=== PATIENT | female | born 1995 | race Caucasian/White ===

== ENCOUNTER 2017-01-25 09:44 | Emergency (ER) | payer OTHER ==
[~2017-01-25] VITALS: Ht 160 cm; Wt 92.5 kg
[~2017-01-25 09:44] MED LIST: METR500T PO
[2017-01-25 09:45] VITALS: Ht 160 cm; Wt 92.5 kg
[2017-01-25 10:15] LABS: URINE BLOOD (Dip) POC Negative (NEGATIVE)
[2017-01-25 10:21] LABS: BASOPHILS % 0.4 % (0.0-2.0); EOSINOPHILS # 0.1 10^3/ul (0.0-0.5); EOSINOPHILS % 0.9 % (0.0-7.0); HEMATOCRIT 38.3 % (37.0-47.0); HEMOGLOBIN 13.4 g/dl (12.0-16.0); LYMPHOCYTES # 2.7 10^3/ul (0.8-2.9); LYMPHOCYTES % 34.1 % (18.0-55.0); MEAN CORPUSCULAR HEMOGLOBIN 30.7 pg (29.0-33.0); MEAN CORPUSCULAR VOLUME 87.8 fl (72.0-104.0); MEAN PLATELET VOLUME 11.6 fl (7.4-10.4); MONOCYTE # 0.5 10^3/ul (0.3-0.9); MONOCYTES % 6.5 % (0.0-13.0); NEUTROPHIL # 4.5 10^3/ul (1.6-7.5); NEUTROPHILS % 57.8 % (30.0-74.0); PLATELET COUNT 243 10^3/UL (140-415); RED BLOOD COUNT 4.36 10^6/ul (4.20-5.40); RED CELL DISTRIBUTION WIDTH 12.1 % (11.5-14.5); WHITE BLOOD COUNT 7.8 10^3/ul (4.8-10.8)
--- NOTE | 2017-01-25 10:38 | ERD ---
ER Documentation Chief Complaint Date/Time DATE: 01/25/17 TIME: 10:33 Chief Complaint vag bleed this morning 6 weeks HPI This is a 21-year-old female presenting to the emergency department with vaginal bleeding while . Patient states last menstrual period 2014. Patient is a A0. Patient states this morning while using the restroom she noticed light spotting. No passage of clots or tissue. No heavy bleeding. ROS All systems reviewed and are negative except as per history of present illness. Medications Home Meds Active Scripts Acetaminophen* (Tylenol*) 325 Mg Tablet, 1 TAB PO Q6 Y for PAIN AND OR ELEVATED TEMP, #20 TAB Prov:WAYNE WEST NP 01/25/17 Nitrofurantoin Monohyd Macrocr* (Macrobid*) 100 Mg Capsr, 100 MG PO BID for 5 Days, CAP Prov:WAYNE WEST NP 01/25/17 Metronidazole* (Flagyl*) 500 Mg Tablet, 500 MG PO TID for 7 Days, TAB Prov:ART NEVAREZ PA-C 01/12/16 Reported Medications [None] No Conflict Check 03/19/12 [None] No Conflict Check 03/17/12 Allergies Allergies: Uncoded Allergies: NONE (Allergy, 03/17/12) PMhx/Soc Medical and Surgical Hx: pt denies Medical Hx, pt denies Surgical Hx History of Surgery: No Anesthesia Reaction: No Hx Neurological Disorder: No Hx Respiratory Disorders: No Hx Cardiac Disorders: No Hx Psychiatric Problems: No Hx Miscellaneous Medical Probl: No Hx Alcohol Use: No Hx Substance Use: No Hx Tobacco Use: No Physical Exam Vitals Vital Signs Date Time Temp Pulse Resp B/P Pulse Ox O2 Delivery O2 Flow Rate FiO2 01/25/17 09:45 97.0 85 18 139/77 96 Physical Exam Const: No acute distress, alert Head: Atraumatic Eyes: Normal Conjunctiva ENT: Normal External Ears, Nose and Mouth. Neck: Full range of motion..~ No meningismus. Resp: Clear to auscultation bilaterally Cardio: Regular rate and rhythm, no murmurs Abd: Soft, non tender, non distended. Normal bowel sounds Skin: No petechiae or rashes Back: No midline or flank tenderness Ext: No cyanosis, or edema Neur: Awake and alert Psych: Normal Mood and Affect Result Diagram: 01/25/17 1005 Results 24 hrs Laboratory Tests Test 01/25/17 10:05 01/25/17 10:21 White Blood Count 7.810^3/ul Red Blood Count 4.3610^6/ul Hemoglobin 13.4g/dl Hematocrit 38.3% Mean Corpuscular Volume 87.8fl Mean Corpuscular Hemoglobin 30.7pg Mean Corpuscular Hemoglobin Concent 35.0g/dl Red Cell Distribution Width 12.1% Platelet Count 55434^3/UL Mean Platelet Volume 11.6fl Neutrophils % 57.8% Lymphocytes % 34.1% Monocytes % 6.5% Eosinophils % 0.9% Basophils % 0.4% Nucleated Red Blood Cells % 0.0/100WBC Neutrophils # 4.510^3/ul Lymphocytes # 2.710^3/ul Monocytes # 0.510^3/ul Eosinophils # 0.110^3/ul Basophils # 0.010^3/ul Nucleated Red Blood Cells # 0.010^3/ul Beta HCG, Quantitative 89966.0mIU/ml Bedside Urine pH (LAB) 7.0 Bedside Urine Protein (LAB) Trace Bedside Urine Glucose (UA) Negative Bedside Urine Ketones (LAB) Negative Bedside Urine Blood Negative Bedside Urine Nitrite (LAB) Negative Bedside Urine Leukocyte Esterase (L Trace Procedures/MDM [place] [address] Radiology Main Line: [phone] DIAGNOSTIC IMAGING REPORT Patient: DEEPALI AHRO : 1995 Age: 21 Sex: F MR #: [id number] DOS: 01/25/17 1003 Ordering MD: WAYNE WEST NP Location: [facility] Room/Bed: PROCEDURE: US Pelvis/OB. CLINICAL INDICATION: vaginal bleeding TECHNIQUE: Multiple sonographic images of the pelvis were obtained utilizing a transabdominal and endovaginal technique. The images were reviewed on a PACS workstation. COMPARISON: None. FINDINGS: There is a small cystic structure within the endometrium measuring 1.4 cm which would correspond to a calculated gestational age of 6 weeks and 0 days. No pole is yet visualized. There is a yolk sac seen. The ovaries are normal. No abnormal adnexal masses are present. The right ovary measures 2.7 x 1.4 x 1.6 cm. The left ovary measures 3.1 x 1.9 x 2.4 cm. There is a small amount of free fluid in the cul-de-sac. RPTAT: AA IMPRESSION: Possible early intrauterine at 6 weeks and 0 days. Close followup ultrasound and hCG is recommended. MDM: 21 year old female presents to ER with vaginal bleeding while . Patient states she is about 6 weeks with last menstrual period 2016. Patient noticed moderate light pink spotting earlier today. No passage of clots or tissue. CBC is unremarkable for significant anemia [place] [address].0. Type and Rh factor is A+ and no indication for RhoGam. OB ultrasound reviewed by radiologist as possible early intrauterine at 6 weeks. Patient remained stable. Nontoxic-appearing. Differential diagnosis includes but not limited to ectopic , threatened , missed , normal , subchorionic hemorrhage , ruptured ovarian cyst, UTI or pyelonephritis. Instructed patient to return in 2 days for repeat lab work and ultrasound. Patient is appropriate for outpatient management and will be given prescription for Tylenol and Macrobid. Instructed patient to follow-up here in the ED in 2 days. Return to ED sooner for any high fever, chest pain, difficulty breathing , shortness breath, wheezing, vomiting, diarrhea, abdominal pain or any new or worsening symptoms. Patient verbalizes understanding. All questions answered at discharge. Departure Diagnosis: Primary Impression: Vaginal bleeding in patient at less than 20 weeks gestation Additional Impression: UTI (urinary tract infection) Urinary tract infection type: acute cystitis Hematuria presence: without hematuria Qualified Code: N30.00 - Acute cystitis without hematuria Condition: Stable WAYNE WEST NP Jan 25, 2017 10:38
--- NOTE | 2017-01-25 11:11 | RADRPT ---
PROCEDURE: US Pelvis/OB. CLINICAL INDICATION: vaginal bleeding TECHNIQUE: Multiple sonographic images of the pelvis were obtained utilizing a transabdominal and endovaginal technique. The images were reviewed on a PACS workstation. COMPARISON: None. FINDINGS: There is a small cystic structure within the endometrium measuring 1.4 cm which would correspond to a calculated gestational age of 6 weeks and 0 days. No pole is yet visualized. There is a yolk sac seen. The ovaries are normal. No abnormal adnexal masses are present. The right ovary measures 2.7 x 1.4 x 1.6 cm. The left ovary measures 3.1 x 1.9 x 2.4 cm. There is a small amount of free fluid in the cul-de-sac. RPTAT: AA IMPRESSION: Possible early intrauterine at 6 weeks and 0 days. Close followup ultrasound and hCG is recommended. .Matteo Brar MD, MD Date Time Electronically viewed and signed by .Matteo Brar MD, on 01/25/2017 11:11 .S/
[2017-01-25] MEDS ORDERED: NITR-58 PO (11:39)
[2017-01-25] MEDS ORDERED: ACET325T33 PO (11:39)
[2017-01-29 16:11] LABS: URINE BLOOD (Dip) POC Negative (NEGATIVE)
== END 2017-01-25 12:07 | disposition home or self-care (01) ==
LOC: FTE 09:44
DX: O20.9 Hemorrhage in early pregnancy, unspecified (principal); O23.11 Infections of bladder in pregnancy, first trimester; Z3A.01 Less than 8 weeks gestation of pregnancy
CPT/HCPCS: 36415; 76801; 76817; 81003; 84702; 85025; 86900; 86901; Z7502

== ENCOUNTER 2017-01-26 15:25 | Emergency (ER) | payer OTHER ==
[~2017-01-26] VITALS: Ht 160 cm; Wt 94.0 kg
[~2017-01-26 15:25] MED LIST changes: +ACET325T33 PO; +NITR-58 PO
[2017-01-26 15:28] VITALS: Ht 160 cm; Wt 94.0 kg
[2017-01-26 17:11] LABS: BASOPHILS % 0.4 % (0.0-2.0); EOSINOPHILS # 0.1 10^3/ul (0.0-0.5); HEMATOCRIT 36.7 % (37.0-47.0); HEMOGLOBIN 12.6 g/dl (12.0-16.0); LYMPHOCYTES # 2.8 10^3/ul (0.8-2.9); LYMPHOCYTES % 30.6 % (18.0-55.0); MEAN CORPUSCULAR HEMOGLOBIN 30.2 pg (29.0-33.0); MEAN CORPUSCULAR HGB CONC 34.3 g/dl (32.0-37.0); MEAN PLATELET VOLUME 11.9 fl (7.4-10.4); MONOCYTE # 0.7 10^3/ul (0.3-0.9); MONOCYTES % 7.8 % (0.0-13.0); NEUTROPHIL # 5.6 10^3/ul (1.6-7.5); NEUTROPHILS % 59.9 % (30.0-74.0); PLATELET COUNT 237 10^3/UL (140-415); RED BLOOD COUNT 4.17 10^6/ul (4.20-5.40); RED CELL DISTRIBUTION WIDTH 12.4 % (11.5-14.5); WHITE BLOOD COUNT 9.3 10^3/ul (4.8-10.8)
--- NOTE | 2017-01-26 17:16 | RADRPT ---
PROCEDURE: OBSTETRICAL ULTRASOUND WITH ENDOVAGINAL IMAGES CLINICAL INDICATION: Vaginal Bleed () TECHNIQUE: Multiple sonographic images of the pelvis were obtained utilizing a transabdominal and endovaginal technique. The images were reviewed on a PACS workstation. COMPARISON: Obstetrical ultrasound from 01/25/2017 LMP: 12/13/2016 FINDINGS: There is a single intrauterine with mean sac diameter of 1.89 cm, yolk sac, and crown-rump length of 0.43 cm which is consistent with a gestational age of 6 weeks, 3 days . The estimated date of delivery by ultrasound is 09/18/2017 . The estimated gestational age by LMP is 6 weeks, 2 days . The estimated date of delivery by LMP is 09/19/2017 . No heart tones are detected. Bilateral ovaries are not visualized. There are no abnormal adnexal masses. There is trace pelvic free fluid. IMPRESSION: A possible intrauterine gestational sac is identified with crown-rump length of 0.43 cm which would be consistent with a gestational age of 6 weeks, 3 days. No heart tones are detected. Findin gs may be due to a viable intrauterine although early demise is not excluded. Short -term follow-up ultrasound and serial Beta HCG measurements are recommended for further evaluation. No subchorionic hemorrhage is identified. Bilateral ovaries are not visualized. There are no abnormal adnexal masses. RPTAT: EE Physician Leobardo Date Time Electronically viewed and signed by Physician Leobardo on 01/26/2017 17:15 /
--- NOTE | 2017-01-26 17:23 | ERD ---
ER Documentation Chief Complaint Date/Time DATE: 01/26/17 TIME: 17:23 Chief Complaint Vaginal bleeding x 2 days HPI 21-year-old female who is stating that she is 6 weeks last menstrual period December 13 complaining of vaginal spotting for the past 2 days. Patient currently denies any pain. She denies any fevers, nausea vomiting diarrhea constipation. ROS All systems reviewed and are negative except as per history of present illness. Medications Home Meds Active Scripts Acetaminophen* (Tylenol*) 325 Mg Tablet, 1 TAB PO Q6 Y for PAIN AND OR ELEVATED TEMP, #20 TAB Prov:WAYNE WEST NP 01/25/17 Nitrofurantoin Monohyd Macrocr* (Macrobid*) 100 Mg Capsr, 100 MG PO BID for 5 Days, CAP Prov:WAYNE WEST NP 01/25/17 Metronidazole* (Flagyl*) 500 Mg Tablet, 500 MG PO TID for 7 Days, TAB Prov:ART NEVAREZ PA-C 01/12/16 Reported Medications [None] No Conflict Check 03/19/12 [None] No Conflict Check 03/17/12 Allergies Allergies: Coded Allergies: No Known Allergy (Unverified , 01/26/17) PMhx/Soc History of Surgery: No Anesthesia Reaction: No Hx Neurological Disorder: No Hx Respiratory Disorders: No Hx Cardiac Disorders: No Hx Psychiatric Problems: No Hx Miscellaneous Medical Probl: No Hx Alcohol Use: No Hx Substance Use: No Hx Tobacco Use: No Physical Exam Vitals Vital Signs Date Time Temp Pulse Resp B/P Pulse Ox O2 Delivery O2 Flow Rate FiO2 01/26/17 15:28 99.1 90 16 132/72 99 Physical Exam General: well-developed/well-nourished, in no apparent distress, non-toxic appearing HENT: NC/AT Eyes: Conjunctiva normal Neck: Supple Pulm: CTA bilaterally, normal breathing CV: Normal S1S2 GI: Soft, non-distended, normal bowel sounds, nontender Back: No midline tenderness, no masses, No CVAT Ext: No clubbing, cyanosis, or edema Neuro: Alert and orientated Skin: intact, normal turgor Psych: Normal mood and mentation Result Diagram: 01/26/17 5772 Results 24 hrs Laboratory Tests Test 01/26/17 16:37 White Blood Count 9.310^3/ul Red Blood Count 4.1710^6/ul Hemoglobin 12.6g/dl Hematocrit 36.7% Mean Corpuscular Volume 88.0fl Mean Corpuscular Hemoglobin 30.2pg Mean Corpuscular Hemoglobin Concent 34.3g/dl Red Cell Distribution Width 12.4% Platelet Count 22933^3/UL Mean Platelet Volume 11.9fl Neutrophils % 59.9% Lymphocytes % 30.6% Monocytes % 7.8% Eosinophils % 1.0% Basophils % 0.4% Nucleated Red Blood Cells % 0.0/100WBC Neutrophils # 5.610^3/ul Lymphocytes # 2.810^3/ul Monocytes # 0.710^3/ul Eosinophils # 0.110^3/ul Basophils # 0.010^3/ul Nucleated Red Blood Cells # 0.010^3/ul Urine Color STRAW Urine Clarity CLEAR Urine pH 7.0 Urine Specific [place] 1.013 Urine Ketones NEGATIVEmg/dL Urine Nitrite NEGATIVEmg/dL Urine Bilirubin NEGATIVEmg/dL Urine Urobilinogen NEGATIVEmg/dL Urine Leukocyte Esterase NEGATIVELeu/ul Urine Hemoglobin NEGATIVEmg/dL Urine Glucose NEGATIVEmg/dL Urine Total Protein NEGATIVEmg/dl Beta HCG, Quantitative 38074.0mIU/ml Procedures/MDM 21-year-old female presents to the emergency department 1 P0 6 weeks with last menstrual period December 13 complaining of vaginal spotting without any pelvic pain for the past 2 days. Patient's beta hCG was 20,772 and her OB ultrasound showed possible intrauterine gestational sac with no heart tones, findings may be due to viable intrauterine versus early demise. Patient is appropriate to be discharged home to return in 2 days to repeat the ultrasound and beta hCG. I will low suspicion for ectopic at this time. Patient is hematuria stable, hemoglobin is normal. No evidence of urinary tract infection. Urine culture was sent out. Patient was unable to wait for her beta-hCG at this time therefore she signed [employer] papers and left however I have called her and discussed with her the results and discuss with her to return in 2 days and patient agreed and understood the plans. OB ULTRASOUND: A possible intrauterine gestational sac is identified with crown-rump length of 0.43 cm which would be consistent with a gestational age of 6 weeks, 3 days. No heart tones are detected. Findings may be due to a viable intrauterine although early demise is not excluded. Short-term follow-up ultrasound and serial Beta HCG measurements are recommended for further evaluation. No subchorionic hemorrhage is identified. Bilateral ovaries are not visualized. There are no abnormal adnexal masses. Departure Diagnosis: Primary Impression: Vaginal bleeding in patient at less than 20 weeks gestation Condition: Stable DUSTY MARTINEZ PA-C Jan 26, 2017 17:23
[2017-01-26 17:29] LABS: ADD UMIC NO; UR ASCORBIC ACID 40 mg/dL (NEGATIVE); UR BILIRUBIN (Dip) NEGATIVE (NEGATIVE); UR BLOOD (Dip) NEGATIVE (NEGATIVE); UR CLARITY CLEAR (CLEAR); UR COLOR STRAW (YELLOW); UR GLUCOSE (Dip) NEGATIVE (NEGATIVE); UR KETONES (Dip) NEGATIVE (NEGATIVE); UR LEUKOCYTE ESTERASE (Dip) NEGATIVE Leu/ul (NEGATIVE); UR NITRITE (Dip) NEGATIVE (NEGATIVE); UR SPECIFIC GRAVITY (Dip) 1.013 (1.003-1.030); UR TOTAL PROTEIN (Dip) NEGATIVE (NEGATIVE); UR UROBILINOGEN (Dip) NEGATIVE (NEGATIVE)
== END 2017-01-26 17:55 | disposition left against medical advice (07) ==
LOC: FTE 15:25
DX: O20.9 Hemorrhage in early pregnancy, unspecified (principal); Z3A.01 Less than 8 weeks gestation of pregnancy
CPT/HCPCS: 36415; 76801; 76817; 81003; 84702; 85025; Z7502

== ENCOUNTER 2017-01-28 08:57 | Emergency (ER) | payer OTHER ==
[~2017-01-28] VITALS: Wt 98.0 kg
[2017-01-28 09:54] LABS: BASOPHILS % 0.4 % (0.0-2.0); EOSINOPHILS # 0.1 10^3/ul (0.0-0.5); EOSINOPHILS % 0.9 % (0.0-7.0); HEMATOCRIT 37.9 % (37.0-47.0); HEMOGLOBIN 12.8 g/dl (12.0-16.0); LYMPHOCYTES # 2.5 10^3/ul (0.8-2.9); LYMPHOCYTES % 31.9 % (18.0-55.0); MEAN CORPUSCULAR HEMOGLOBIN 30.3 pg (29.0-33.0); MEAN CORPUSCULAR HGB CONC 33.8 g/dl (32.0-37.0); MEAN CORPUSCULAR VOLUME 89.6 fl (72.0-104.0); MEAN PLATELET VOLUME 11.7 fl (7.4-10.4); MONOCYTE # 0.3 10^3/ul (0.3-0.9); MONOCYTES % 4.4 % (0.0-13.0); NEUTROPHIL # 4.8 10^3/ul (1.6-7.5); NEUTROPHILS % 62.1 % (30.0-74.0); PLATELET COUNT 213 10^3/UL (140-415); RED BLOOD COUNT 4.23 10^6/ul (4.20-5.40); RED CELL DISTRIBUTION WIDTH 12.4 % (11.5-14.5); WHITE BLOOD COUNT 7.7 10^3/ul (4.8-10.8)
--- NOTE | 2017-01-28 10:12 | RADRPT ---
PROCEDURE: US OB. CLINICAL INDICATION: Vaginal bleeding TECHNIQUE: Transabdominal and transvaginal views of the pelvis are available for review. COMPARISON: 01/26/17 FINDINGS: There is a single intrauterine gestation with the crown-rump length measuring 0.5 cm, corresponding to a gestational age of 6 weeks and 4 days. Normal Doppler flow is identified in both ovaries. The right ovary measures 2.8 x 1.7 cm. The left ovary measures 3.3 x 2.5 cm. There is a corpus luteum cyst in the left ovary. There is no free fluid. RPTAT: AA IMPRESSION: Single live intrauterine with an estimated gestational age of 6 weeks and 4 days, based on ultrasound measurements. TORSTEN based on ultrasound measurements is 09/19/17. bradycardia. Close follow-up is recommended. .Matteo Brar MD, Date Time Electronically viewed and signed by .Matteo Brar MD, on 01/28/2017 10:12 .S/
--- NOTE | 2017-01-28 10:31 | ERD ---
ER Documentation Chief Complaint Date/Time DATE: 01/28/17 TIME: 10:28 Chief Complaint SENT FOR FOLLOW UP ULTRASOUND HPI 21 year old female presents to the emergency department who is 6 weeks for repeat ultrasound and beta-hCG. Patient was evaluated at this facility 2 days ago.. Patient was seen at this facility 2 days ago for a vaginal spotting which has resolved. Patient states that she does not have any pelvic pain, denies any vaginal bleeding, denies any fevers, dysuria abdominal pain. She appears well ROS All systems reviewed and are negative except as per history of present illness. Medications Home Meds Active Scripts Cephalexin* (Keflex*) 500 Mg Capsule, 500 MG PO TID for 5 Days, CAP Prov:DUSTY MARTINEZ PA-C 01/28/17 Acetaminophen* (Tylenol*) 325 Mg Tablet, 1 TAB PO Q6 Y for PAIN AND OR ELEVATED TEMP, #20 TAB Prov:WAYNE WEST NP 01/25/17 Nitrofurantoin Monohyd Macrocr* (Macrobid*) 100 Mg Capsr, 100 MG PO BID for 5 Days, CAP Prov:WAYNE WEST NP 01/25/17 Metronidazole* (Flagyl*) 500 Mg Tablet, 500 MG PO TID for 7 Days, TAB Prov:ART NEVAREZ PA-C 01/12/16 Reported Medications [None] No Conflict Check 03/19/12 [None] No Conflict Check 03/17/12 Allergies Allergies: Coded Allergies: No Known Allergy (Unverified , 01/28/17) PMhx/Soc Medical and Surgical Hx: pt denies Medical Hx, pt denies Surgical Hx History of Surgery: No Anesthesia Reaction: No Hx Neurological Disorder: No Hx Respiratory Disorders: No Hx Cardiac Disorders: No Hx Psychiatric Problems: No Hx Miscellaneous Medical Probl: No Hx Alcohol Use: No Hx Substance Use: No Hx Tobacco Use: No Physical Exam Vitals Vital Signs Date Time Temp Pulse Resp B/P Pulse Ox O2 Delivery O2 Flow Rate FiO2 01/28/17 09:02 98.0 91 18 119/58 99 Physical Exam Const: Well-developed well-nourished no acute distress Head: Atraumatic Eyes: Normal Conjunctiva ENT: Normal External Ears, Nose and Mouth. Neck: Full range of motion..~ No meningismus. Resp: Clear to auscultation bilaterally Cardio: Regular rate and rhythm, no murmurs Abd: Soft, non tender, non distended. Normal bowel sounds Skin: No petechiae or rashes Back: No midline or flank tenderness Ext: No cyanosis, or edema Neur: Awake and alert Psych: Normal Mood and Affect Result Diagram: 01/28/17 0940 Results 24 hrs Laboratory Tests Test 01/28/17 09:40 01/28/17 09:41 White Blood Count 7.710^3/ul Red Blood Count 4.2310^6/ul Hemoglobin 12.8g/dl Hematocrit 37.9% Mean Corpuscular Volume 89.6fl Mean Corpuscular Hemoglobin 30.3pg Mean Corpuscular Hemoglobin Concent 33.8g/dl Red Cell Distribution Width 12.4% Platelet Count 29429^3/UL Mean Platelet Volume 11.7fl Neutrophils % 62.1% Lymphocytes % 31.9% Monocytes % 4.4% Eosinophils % 0.9% Basophils % 0.4% Nucleated Red Blood Cells % 0.0/100WBC Neutrophils # 4.810^3/ul Lymphocytes # 2.510^3/ul Monocytes # 0.310^3/ul Eosinophils # 0.110^3/ul Basophils # 0.010^3/ul Nucleated Red Blood Cells # 0.010^3/ul Beta HCG, Quantitative 93212.0mIU/ml Urine Color YELLOW Urine Clarity SLIGHTLY CLOUDY Urine pH 7.0 Urine Specific [place] 1.021 Urine Ketones NEGATIVEmg/dL Urine Nitrite NEGATIVEmg/dL Urine Bilirubin NEGATIVEmg/dL Urine Urobilinogen NEGATIVEmg/dL Urine Leukocyte Esterase TRACELeu/ul Urine Microscopic RBC 3/HPF Urine Microscopic WBC 1/HPF Urine Squamous Epithelial Cells MODERATE/HPF Urine Mucus FEW/HPF Urine Hemoglobin NEGATIVEmg/dL Urine Glucose NEGATIVEmg/dL Urine Total Protein NEGATIVEmg/dl Procedures/MDM 21-year-old female who is 6 weeks presents to the emergency department for reevaluation of beta-hCG and ultrasound. Patient was evaluated at this facility 2 days ago for vaginal spotting. 2 days ago there was a possible intrauterine gestational sac therefore she needed a repeat ultrasound and trending beta-hCG. She presents again today. Patient's vaginal spotting has resolved and her beta-hCG has been elevated and on ultrasound today there was an intrauterine gestational sac with heart sounds. Urinalysis showed trace leukocyte esterase therefore she will be treated for empirically for a urinary tract infection. Patient appears well, she stable to be discharged home to follow-up with [facility]. Discussed return to the ER for any worsening signs or symptoms. She understands and agrees with this plan OB ultrasound: Single live intrauterine with an estimated gestational age of 6 weeks and 4 days, based on ultrasound measurements. TORSTEN based on ultrasound measurements is 09/19/17. bradycardia. Close follow-up is recommended. Departure Diagnosis: Primary Impression: UTI (urinary tract infection) Additional Impression: Threatened Condition: Stable DUSTY MARTINEZ PA-C Jan 28, 2017 10:31
[2017-01-28 10:35] LABS: ADD UMIC YES; UR ASCORBIC ACID 40 mg/dL (NEGATIVE); UR BILIRUBIN (Dip) NEGATIVE (NEGATIVE); UR BLOOD (Dip) NEGATIVE (NEGATIVE); UR CLARITY SLIGHTLY CLOUDY (CLEAR); UR COLOR YELLOW (YELLOW); UR GLUCOSE (Dip) NEGATIVE (NEGATIVE); UR KETONES (Dip) NEGATIVE (NEGATIVE); UR LEUKOCYTE ESTERASE (Dip) TRACE Leu/ul (NEGATIVE); UR MUCUS FEW /HPF (NONE SEEN); UR NITRITE (Dip) NEGATIVE (NEGATIVE); UR RBC 3 /HPF (0-5); UR SPECIFIC GRAVITY (Dip) 1.021 (1.003-1.030); UR SQUAMOUS EPITHELIAL CELL MODERATE /HPF (FEW); UR TOTAL PROTEIN (Dip) NEGATIVE (NEGATIVE); UR UROBILINOGEN (Dip) NEGATIVE (NEGATIVE)
[2017-01-28] MEDS ORDERED: CEPH-443 PO (11:27)
== END 2017-01-28 11:36 | disposition home or self-care (01) ==
LOC: FTE 08:57
DX: O23.41 Unspecified infection of urinary tract in pregnancy, first trimester (principal); O20.0 Threatened abortion; Z3A.01 Less than 8 weeks gestation of pregnancy
CPT/HCPCS: 36415; 76801; 76817; 81001; 84702; 85025; Z7502

== ENCOUNTER 2017-08-22 09:52 | Outpatient (CLI) | END 2017-08-22 12:30 | disposition home or self-care (01) ==

== ENCOUNTER 2017-08-31 02:20 | Outpatient (CLI) | END 2017-08-31 05:00 | disposition home or self-care (01) ==

== ENCOUNTER 2017-09-10 09:00 | Inpatient (IN) | END 2017-09-13 14:25 | disposition home or self-care (01) | DRG 775 ==

== ENCOUNTER 2017-12-11 22:48 | Emergency (ER) | END 2017-12-12 02:35 | disposition home or self-care (01) ==